=== PATIENT | female | born 1940 | race Caucasian/White ===

== ENCOUNTER 2016-10-03 07:08 | Inpatient (IN) | payer MEDICARE ==
[~2016-10-03] VITALS: Ht 175.3 cm; Wt 65.5 kg
[2016-10-03] VITALS (13 sets, daily range): BP systolic 95–111; BP diastolic 63–84; BMI 20.7
[~2016-10-03 07:08] MED LIST: COREG6.25 MG PO; FLOMAX0.4 MG PO; LANOXIN125 MCG PO; LASIX20 MG PO; MICRO-K10 MEQ PO; NEXIUM40 MG PO; NORCO 10/325 TA1 TA1 PO; PRAVACHOL40 MG PO; PREDNISONE5 MG PO
[2016-10-03 08:28] LABS: BASOPHILS 0.2 % (0.0-2.0); EOSINOPHILS 0.2 % (0-7); HEMATOCRIT 50.2 % (42.0-54.0); HEMOGLOBIN 16.3 g/dL (13.5-17.5); IMMATURE GRANULOCYTES 1.8 % (0-5); MCH 29.5 pg (26.0-34.0); MCHC 32.5 g/dL (31.0-37.0); MCV 90.8 fL (80.0-100.0); MEAN PLATELET VOLUME 10.8 fL (7.4-10.4); MONOCYTES 5.7 % (2-11); NEUTROPHILS 86.1 % (40-80); PLATELET COUNT 167 10x3/uL (130-400); RBC 5.53 10x6/uL (4.20-6.10); RDW 13.9 % (11.5-14.5); WBC 17.1 10x3/uL (4.8-10.8)
[2016-10-03 08:52] LABS: ALBUMIN 2.8 g/dL (3.4-5.0); ANION GAP 13.1 mmol/L (8-16); BILIRUBIN - TOTAL 1.1 mg/dL (0.2-1.3); CALCIUM 9.6 mg/dL (8.5-10.1); CARBON DIOXIDE 31.3 mmol/L (21.0-32.0); CREATININE - SERUM 1.3 mg/dL (0.6-1.3); POTASSIUM - SERUM 4.4 mmol/L (3.5-5.1); PROTEIN - SERUM 7.7 g/dL (6.4-8.2)
[2016-10-03] MEDS ORDERED: CIALIS5 MG PO (11:48)
[2016-10-03] MEDS ORDERED: TESSALON PERLE100 MG PO (11:50)
--- NOTE | 2016-10-03 11:50 | NUR ---
Is the patient Alert and Oriented? No 0 * How many steps to enter\exit or inside your home? 0 0 * PCP FANNIE BLAIR APN 0 * Pharmacy [facility] 0 * Preadmission Environment Home with Family 0 * ADLs Independent 0 * Equipment Oxygen 0 * Other Equipment PATENT HAS CONCENTRATOR AND PORTABLE PROVIDED BY [employer] 0 * List name and contact numbers for known caregivers / representatives who currently or will assist patient after discharge: SPOUSE: MOMO [phone] 0 * Community resources currently utilized None 0 * Additional services required to return to the preadmission environment? No 0 * Can the patient safely return to the preadmission environment? Yes 0 * Has this patient been hospitalized within the prior 30 days at any hospital? No PATIENT LIVES AT HOME WITH HIS . SHE WILL BE AVAILABLE TO DRIVE HIM HOME AT DISCHARGE. SHE STATES THAT HE IS INDEPENDENT IN ADL'S. PATIENT PCP IS FANNIE BLAIR APN. HE GETS HIS MEDS AT [facility]. PATIENT HAS HOME O2 CONCENTRATOR AND PORTABLE PROVIDED BY [employer]. NEVER HAD HOME HEALTH. PATIENT STATES ONLY 1 STEP TO ENTER [facility].
[2016-10-03] MEDS ORDERED: TEMAZEPAM30 MG PO (11:53)
[2016-10-03] MEDS ORDERED: SINGULAIR10 MG PO (11:53)
[2016-10-03] MEDS ORDERED: PLAQUENIL200 MG PO (11:54)
[2016-10-03] MEDS ORDERED: PROVENTIL HFA6.7 GM INH (11:56)
[2016-10-03] MEDS ORDERED: PHENERGAN6.25 MG/5 PO (11:57)
[2016-10-03] MEDS ORDERED: TESTOSTERON200 MG/ML IM (12:00)
[2016-10-03 12:22] LABS: APPEARANCE CLEAR (CLEAR); BILIRUBIN NEGATIVE (NEGATIVE); COLOR DK YELLOW (YELLOW); GLUCOSE NEGATIVE (NEGATIVE); KETONE SMALL mg/dL (NEGATIVE); LEUKOCYTE ESTERASE TRACE (NEGATIVE); NITRITE NEGATIVE (NEGATIVE); PROTEIN TRACE mg/dL (NEGATIVE); SPECIFIC GRAVITY 1.015 (1.005-1.020); UROBILINOGEN NORMAL (NORMAL)
[2016-10-03 12:25] LABS: EPITHELIAL CELLS 0-5 /hpf (0-5); GRANULAR CAST RARE /lpf (NONE SEEN); MUCUS <1+ /lpf (NONE SEEN); RED CELLS - URINE OCC /hpf (0-5); WHITE CELLS - URINE OCC /hpf (0-5)
--- NOTE | 2016-10-03 14:29 | NUR ---
1130 PT RECIEVED FROM THE ER VIA STRECHER.. BIPAP O2 ON ARRIVAL...PT IS AWAKE AND ALERT.. PT STATES HE WANTS EVERYTHING DONE TO PROLONG HIS LIFE.. INCLUDING INTUBATION.. THERE IS A LEFT PIV WITH LEVOQUIN INFUSING ON ARRIVAL.. 1200 AND DAUGHTER IN TO SEE PT AND ASSISTED WITH MED HISTORY.. PT IS CONVERSING WITH THE FAMILY THRU BIPAP MASK.. 1230 [address] KEENAN AND DR WINKLER IN TO SEE PT AND SPOKW WIH THE FAMILY AND PT.. PT VOIDS WITHOUT DIFFICULTY INTO URINAL.. ICE CHIPS GIVEN TO PT 1330 ECHO DONE AT BEDSIDE PER ORDER.. 1400 CONTINUES ON BIPAP RECIEVING ICE CHIPS... RESTING QUIETLY AT THIS TIME..
--- NOTE | 2016-10-03 16:23 | EC ---
PATIENT:CL VICKERS DATE OF SERVICE: 10/03/16 SEX: M MEDICAL RECORD: [id number] DATE OF : [birth year] LOCATION:[facility] AGE OF PATIENT: 76 ADMISSION DATE: 10/03/16 REFERRING PHYSICIAN: INTERPRETING PHYSICIAN: CASTRO ALEXANDRE MD ECHOCARDIOGRAM REPORT ECHO CHARGES 5 ECHO LIMITED CLINICAL DIAGNOSIS: CHF/ASSESS EF HX OF CHF/ ASSESS EF HX OF ICD/CAD ECHO COMPLETED DONE ON 09-27-16 ECHOCARDIOGRAPHIC MEASUREMENTS (adult normal given) AC root (d.<3.7cm) 3.4 LV Septum d (<1.2 cm> 1.7 Valve Excursion 1.7 LV Septum (systole) 1.6 Left Atria (s.<4.0cm> 3.7 LVPW d(<1.2cm) 1.2 RV (d.<2.3cm) 4.0 LVPW (sytole) 1.1 LV diastole(<5.6CM) 5.9 MV E-F(>70mm/sec) LV systole 5.4 LVOT Diameter MV exc.(>10mm) Est.ejection fraction (50-75%) Pericardial Effusion N DOPPLER: LVIT A E LA RVSP 33 LVOT AOP1/2T Asc. Ao RVOT RA PA AV Gradient Peak AV Mean AV Area MV Gradient Peak MV Mean MV Area COMMENTS: Loading Unit Operator Crimping: Sadi HILLIARD Automatic I Threading Machine Feeder:2 Dr. Roche TAPE# PACS DATE OF SERVICE: 10/03/2016 Echocardiogram FINDINGS: 1. Left ventricle chamber size is dilated. Left ventricular systolic function is markedly reduced, overall ejection fraction 15% to 20%. 2. Left atrium, right atrium, and right ventricular chamber sizes are mildly ECHOCARDIOGRAM REPORT [id number] CL VICKERS dilated. 3. Valvular structures have normal structure and motion. 4. Doppler interrogation reveals mild aortic insufficiency, mild mitral regurgitation, mild tricuspid regurgitation, no other valvular insufficiency or stenosis. 5. No evidence of pericardial effusion or left ventricular thrombus. TRANSINT:[id number] Voice Confirmation ID: [id number] DOCUMENT ID: [id number] CASTRO ALEXANDRE MD at 1623 CC: [id number] DICTATION DATE: 10/03/16 1509 METAL CANS SUPERVISOR: 10/03/16 1526 ADM IN [facility] [address] [id number]
--- NOTE | 2016-10-03 18:04 | NUR ---
1500 FAMILY IN TO SEE PT PT IS VERY RESTLESS AND IS TRYING TO GET OOB SO THAT HE CAN URINAE IN THE URINAL STANDING AT BEDSIDE.. PT IS VERY COMBATIVE AND ANXIOUS WITH HIS PULSE RATE CLIMBING UP TO 136 AND RESPIRATIONS ARE 54 ON BIPAP AT 70%... VERY HELPFUL IN CALMING PT ..UPDATE GIVEN TO HER.. 1540 AFTER SPOKE WITH PT AND 1 MGATIVAN GIVEN IV FOR AGITATION PT AGREED TO KEY CATH PLACEMENT.. 1620 18FR COUDE CATH PLACED BY NEISHA THOMPSON RN.. IMMIDIATE RETURN OF 200CC YELLOW URINE INTO COLLECTION BAG... 1700 PT IS RESTING QUIETLY AT THIS TIME.. 1730 PT SOMEWHAT CONFUSED AND STATING HE NEEDS TO GET OOB TO URINATE.. REORIENTED TO CATHETER.. 1800 FAMILY AT THE BEDSIDE.. UPDAte given
--- NOTE | 2016-10-03 23:30 | NUR ---
1929- REPORT RECVD. CARE ASSUMED. INITIAL ASSMNT COMPLETED. SEE FLOWSHEET FOR ALL FINDINGS. AWAKE, RESTLESS. ORIENTED. RESP SHALLOW AND TACHY ON BIPAP AT 70%. LUNGS WITH CRACKLES AND WHEEZES THRU OUT. DIM IN BASES. ST ON THE MONITOR WITH OCC PACS. PULSES PALP, WEAK. SCDS ON. ABD SOFT, BSA X4. F/C PATENT WITH CONCENTRATED UOP. DENIES DISCOMFORT. HOB UP. C/L IN REACH. CONT CURRENT POC. 2100- HS MEDS GIVEN. ORAL CARE PROVIDED. FAMILY AT BEDSIDE. UPDATE GIVEN. VSS. REMAINS ON BIPAP. CONT POC. 0- REASSESSMENT COMPLER SEE FLOWSHEET FOR ALL FINDINGS. AWAKE, RESTLESS. ORIENTED. RESP SHALLOW AND TACHY ON BIPAP AT 70%. LUNGS WITH CRACKLES AND WHEEZES THRU OUT. DIM IN BASES. ST ON THE MONITOR WITH OCC PACS. PULSES PALP, WEAK. SCDS ON. ABD SOFT, BSA X4. F/C PATENT WITH CONCENTRATED UOP. DENIES DISCOMFORT. HOB UP. C/L IN REACH. CONT CURRENT POC.
[2016-10-04] VITALS (25 sets, daily range): BP systolic 93–134; BP diastolic 40–96; Ht 175.3 cm; Wt 65.5 kg
--- NOTE | 2016-10-04 01:10 | NUR ---
RESTING ON BIPAP WITHNO DISTRESS AT THIS TIME. VSS. SPO2 97% ON BIPAP AT 70% FIO2. ORAL CARE PROVIDED. HOB UP. C/L IN REACH. CONT CURRENT POC.
--- NOTE | 2016-10-04 03:30 | NUR ---
REASSESSMENT COMPLETED. SEE FLOWSHEET FOR ALL FINDINGS. AWAKE, RESTLESS. ORIENTED. RESP SHALLOW AND TACHY ON BIPAP AT 70%. LUNGS WITH CRACKLES AND WHEEZES THRU OUT. DIM IN BASES. ST ON THE MONITOR WITH OCC PACS. PULSES PALP, WEAK. SCDS ON. ABD SOFT, BSA X4. F/C PATENT WITH CONCENTRATED UOP. DENIES DISCOMFORT. HOB UP. C/L IN REACH. CONT CURRENT POC.
--- NOTE | 2016-10-04 05:20 | NUR ---
RESTING ON BIPAP WITH NO DISTRESS. VSS. FIO2 DECREASED PER ABGS. SPO2 97%. ORAL CARE PROVIDED. HOB UP. C/L IN REACH. CONT CURRENT POC.
[2016-10-04 05:45] LABS: BASOPHILS 0.1 % (0.0-2.0); EOSINOPHILS 0 % (0-7); HEMATOCRIT 47.4 % (42.0-54.0); HEMOGLOBIN 15.1 g/dL (13.5-17.5); IMMATURE GRANULOCYTES 0.8 % (0-5); LYMPHOCYTES 2.7 % (15-50); MCH 28.9 pg (26.0-34.0); MCHC 31.9 g/dL (31.0-37.0); MCV 90.6 fL (80.0-100.0); MEAN PLATELET VOLUME 11.1 fL (7.4-10.4); MONOCYTES 3.5 % (2-11); NEUTROPHILS 92.9 % (40-80); PLATELET COUNT 167 10x3/uL (130-400); RBC 5.23 10x6/uL (4.20-6.10); RDW 14.1 % (11.5-14.5)
[2016-10-04 06:03] LABS: WBC 12.1 10x3/uL (4.8-10.8)
[2016-10-04 06:14] LABS: ALBUMIN 2.3 g/dL (3.4-5.0); ANION GAP 14.4 mmol/L (8-16); BILIRUBIN - TOTAL 0.62 mg/dL (0.2-1.3); CALCIUM 9.3 mg/dL (8.5-10.1); CARBON DIOXIDE 29.9 mmol/L (21.0-32.0); CHOL - HDL RATIO 4.5 ratio (2.3-4.9); CREATININE - SERUM 1.2 mg/dL (0.6-1.3); LDL-HDL RATIO 3.2 ratio (1.5-3.5); PHOSPHOROUS 3.5 mg/dL (2.5-4.9); POTASSIUM - SERUM 4.3 mmol/L (3.5-5.1); PROTEIN - SERUM 6.8 g/dL (6.4-8.2); THYROID STIMULATING HORMONE 0.32 uIU/mL (0.36-3.74)
[2016-10-04 06:15] LABS: TROPONIN-I 1.202 ng/mL (0.000-0.060)
--- NOTE | 2016-10-04 07:53 | NUR ---
DR ROSADO CALLED TROP I 1.2 NO NEW ORDERS OBTAINED.
--- NOTE | 2016-10-04 09:25 | NUR ---
ROB WAS UNSUCCESSFUL WITH FIRST ATTEMPT WITH PICC LINE PLACEMENT. WILL ALLOW FAMILY TO VISIT AND THEN TRY AGAIN.
--- NOTE | 2016-10-04 09:37 | NUR ---
PATIENTS BIPAP TURNED DOWN TO 40% BY CHELLY WITH RESPIRATORY.
--- NOTE | 2016-10-04 10:39 | NUR ---
ORAL CARE COMPLETED, THIS TIME WAS ABLE TO RECEIVE SPUTUM FOR CULTURE.
--- NOTE | 2016-10-04 12:15 | NUR ---
ATTEMPTED TO PULL PATIENT OFF BIPAP IN FEW SECOND SPIRTS SO THAT HE COULD TRY TO CONSUME HIS CLEAR LIQUID DIET. PATIENT DID NOT TOLERATE THIS WELL. HE DRANK MOST OF HIS APPLEJUICE AND ATE 2 SQUARES OF JELLO OVER A 12 MINUTE (PUTTING BIPAP MASK BACK ON INBETWEEN EACH TIME). PATIENT BECAME VERY SHORT OF BREATH, FACE TURNED PURPLE IN COLOR. ON THE BIPAP HIS SATS WERE 86-93% AND PATIENT STARTED PANICKING. WITH THE ASSISTANCE OF PHYSICAL THERAPY, PATIENT WAS ABLE TO CONTROL HIS BREATHS. HE IS NOW ON 45% OXYGEN. SATS ARE HANGING AROUND 94-96%
--- NOTE | 2016-10-04 14:53 | NUR ---
PATIENT VOMITED ABOUT 60CC OF YELLOW FLUID. ZOFRAN HAS BEEN GIVEN, JUST HAS NOT TAKEN HOLD YET. PATIENT STATED HE STILL FEELS A LITTLE NAUSEATED. WHEN ASKED IF HE HAD NAUSEA PRIOR TO HIS HOSPITALIZATION HE SAID IT HAS BEEN GOING ON FOR THE LAST "7 WEEKS". QUESTIONED TO WHETHER OR NOT HE HAS MENTIONED IT TO HIS DOCTOR AND HE STATED NO. WILL MAKE SURE THE DOCTOR IS A MANZO THE NAUSEA HAS BEEN COMING AND GOING FOR THE LAST 7 WEEKS. PATIENT WAS CLEANED UP BY THIS NURSE AND HIS BIPAP MASK WAS CLEANED UP BY WENDY SPAULDING. PATIENTS SATS DROPPED TO 71% DURING THE SHORT TIME HE WAS ON ROOM AIR. RECOVERED BACK TO 94% IN LESS THAN 3 MINUTES. ASSESSMENT WAS COMPLETED AT THIS TIME.
--- NOTE | 2016-10-04 15:08 | NUR ---
PATIENT VOMITED AGAIN. THIS TIME THERE WAS 120 ML OF YELLOW EMESIS. PATIENT STATED THAT THIS TIME HE FEELS EVEN BETTER THAN THE LAST TIME. DAUGHTER IS HERE FOR VISITATIONS. SHE HAS CONFIRMED THE NAUSEA FOR A BIT, UNSURE IF IT HAS BEEN 7 WEEKS, BUT SAID IT HAS BEEN "A BIT".
--- NOTE | 2016-10-04 15:20 | NUR ---
SPOKE WITH DR RAY ABOUT PATIENT, WILL START HIM ON A ZOFRAN GTT.
--- NOTE | 2016-10-04 23:30 | NUR ---
1929- REPORT RECVD. CARE ASSUMED. INITIAL ASSMNT COMPLETED. SEE FLOWSHEET FOR ALL FINDINGS. AWAKE, RESTLESS. ORIENTED. RESP SHALLOW AND TACHY ON BIPAP. LUNGS WITH CRACKLES AND WHEEZES THRU OUT. DIM IN BASES. ST ON THE MONITOR WITH OCC PACS. PULSES PALP, WEAK. SCDS ON. ABD SOFT, BSA X4. F/C PATENT WITH CONCENTRATED UOP. DENIES DISCOMFORT. HOB UP. C/L IN REACH. CONT CURRENT POC. 2100- HS MEDS GIVEN. ORAL CARE PROVIDED. FAMILY AT BEDSIDE. UPDATE GIVEN. VSS. REMAINS ON BIPAP. CONT POC. 2329- REASSESSMENT COMPLER SEE FLOWSHEET FOR ALL FINDINGS. AWAKE, RESTLESS. ORIENTED. RESP SHALLOW AND TACHY ON BIPAP. LUNGS WITH CRACKLES AND WHEEZES THRU OUT. DIM IN BASES. ST ON THE MONITOR WITH OCC PACS. PULSES PALP, WEAK. SCDS ON. ABD SOFT, BSA X4. F/C PATENT WITH CONCENTRATED UOP. DENIES DISCOMFORT. HOB UP. C/L IN REACH. CONT CURRENT POC.
[2016-10-05] VITALS (23 sets, daily range): BP systolic 94–118; BP diastolic 48–88
--- NOTE | 2016-10-05 01:15 | NUR ---
RESTING ON BIPAP. VSS. ORAL CARE AND PO FLUIDS PROVIDED. REPOSITIONS SELF FOR COMFORT. ST ON THE MONITOR. DENIES DISCOMFORT. HOB UP. C/L IN REACH. CONT CURRENT POC.
--- NOTE | 2016-10-05 03:22 | NUR ---
REASSESSMENT COMPLETED. SEE FLOWSHEET FOR ALL FINDINGS. RESTING ON BIPAP WITH NO DISTRESS. SPO2 97%. LUNGS WITH SCANT CRACKLES TO UPPER LOBES. DIM IN BASES. SR-ST ON THE MONITOR. PULSES PALP. TRACE EDEMA NOTED. SCDS ON. AFEBRILE. ABD SOFT, BSA X4. F/C PATENT WITH CONCENTRATED UOP. HOB UP. C/L IN REACH. BED ALARM ON FOR SAFETY. CONT CURRENT POC.
--- NOTE | 2016-10-05 05:16 | NUR ---
RESTING WITH NO DISTRESS. PRN ATIVAN GIVEN FOR ANXIETY PER REQUEST. VSS. SR ON THE MONITOR. SPO2 96% ON FIO2 45%. HOB UP. C/L IN REACH. CONT CURRENT POC.
[2016-10-05 05:48] LABS: APPEARANCE HAZY (CLEAR); BILIRUBIN NEGATIVE (NEGATIVE); COLOR YELLOW (YELLOW); GLUCOSE NEGATIVE (NEGATIVE); KETONE MODERATE mg/dL (NEGATIVE); LEUKOCYTE ESTERASE NEGATIVE (NEGATIVE); NITRITE NEGATIVE (NEGATIVE); PROTEIN TRACE mg/dL (NEGATIVE); RED CELLS - URINE 25-50 /hpf (0-5); SPECIFIC GRAVITY 1.015 (1.005-1.020); UROBILINOGEN NORMAL (NORMAL); WHITE CELLS - URINE 0-5 /hpf (0-5)
[2016-10-05 06:22] LABS: BASOPHILS 0 % (0.0-2.0); EOSINOPHILS 0 % (0-7); HEMATOCRIT 44.9 % (42.0-54.0); HEMOGLOBIN 14.3 g/dL (13.5-17.5); IMMATURE GRANULOCYTES 0.5 % (0-5); LYMPHOCYTES 1.9 % (15-50); MCH 29.1 pg (26.0-34.0); MCHC 31.8 g/dL (31.0-37.0); MCV 91.3 fL (80.0-100.0); NEUTROPHILS 92.6 % (40-80); PLATELET COUNT 168 10x3/uL (130-400); RBC 4.92 10x6/uL (4.20-6.10); RDW 14.1 % (11.5-14.5); WBC 13.7 10x3/uL (4.8-10.8)
[2016-10-05 07:05] LABS: ALBUMIN 2.2 g/dL (3.4-5.0); ALKALINE PHOSPHATASE 72 U/L (46-116); BILIRUBIN - TOTAL 0.47 mg/dL (0.2-1.3); CALC OSMOLALITY 291 mosm/kg (275-300); CALCIUM 9.1 mg/dL (8.5-10.1); CARBON DIOXIDE 30.5 mmol/L (21.0-32.0); CHLORIDE - SERUM 105 mmol/L (98-107); CKMB 3.8 U/L (0.0-3.6); CREATININE - SERUM 1.1 mg/dL (0.6-1.3); GLUCOSE 140 mg/dL (74-106); MAGNESIUM - SERUM 2.1 mg/dL (1.8-2.4); POTASSIUM - SERUM 4.2 mmol/L (3.5-5.1); PRO BNP 7033 pg/mL (0-450); PROTEIN - SERUM 6.4 g/dL (6.4-8.2); SODIUM 141 mmol/L (136-145); THYROID STIMULATING HORMONE 0.25 uIU/mL (0.36-3.74); UREA NITROGEN 38 mg/dL (7-18); eGFR NON AFRICAN AMERICAN 69 mL/min (90-120)
[2016-10-05 07:06] LABS: ALT (SGPT) 21 U/L (10-68); PHOSPHOROUS 2.4 mg/dL (2.5-4.9); TROPONIN-I 0.669 ng/mL (0.000-0.060)
--- NOTE | 2016-10-05 09:05 | NUR ---
PLACED ON O2 AT 8L OXIMIZER.
--- NOTE | 2016-10-05 09:23 | NUR ---
PLACED BACK ON BIPAP.
--- NOTE | 2016-10-05 12:00 | NUR ---
ON OXIMIZER FOR LUNCH.
--- NOTE | 2016-10-05 13:15 | NUR ---
BACK ON BIPAP.
--- NOTE | 2016-10-05 23:30 | NUR ---
1929- REPORT RECVD. CARE ASSUMED. INITIAL ASSMNT COMPLETED. SEE FLOWSHEET FOR ALL FINDINGS. AWAKE, RESTLESS. ORIENTED. RESP SHALLOW AND TACHY ON BIPAP. LUNGS WITH CRACKLES AND WHEEZES THRU OUT. DIM IN BASES. ST ON THE MONITOR WITH OCC PACS. PULSES PALP, WEAK. SCDS ON. ABD SOFT, BSA X4. F/C PATENT WITH CONCENTRATED UOP. DENIES DISCOMFORT. HOB UP. C/L IN REACH. CONT CURRENT POC. 2100- HS MEDS GIVEN. ORAL CARE PROVIDED. FAMILY AT BEDSIDE. UPDATE GIVEN. VSS. REMAINS ON BIPAP. CONT POC. 2329- REASSESSMENT COMPLER SEE FLOWSHEET FOR ALL FINDINGS. AWAKE, RESTLESS. ORIENTED. RESP SHALLOW AND TACHY ON BIPAP. LUNGS WITH CRACKLES AND WHEEZES THRU OUT. DIM IN BASES. SR ON THE MONITOR WITH OCC PACS. PULSES PALP, WEAK. SCDS ON. ABD SOFT, BSA X4. F/C PATENT WITH CONCENTRATED UOP. DENIES DISCOMFORT. HOB UP. C/L IN REACH. CONT CURRENT POC.
[2016-10-06] VITALS (24 sets, daily range): BP systolic 91–152; BP diastolic 42–89
--- NOTE | 2016-10-06 01:30 | NUR ---
RESTING ON BIPAP WITH NO DISTRESS. VSS. SPO2 97% SR ON THE MONITOR. HOB UP. C/L IN REACH. BED ALARM ON. CONT CURRENT POC.
--- NOTE | 2016-10-06 03:00 | NUR ---
REQUESTED PRN ATIVAN FOR ANXIETY. REASSESSMENT COMPLETED. SEE FLOWSHEEET FOR ALL FINDINGS. REMAINS ON BIPAP. SR ON THE MONITOR. DENIES DISCOMFORT. HOB UP. C/L IN REACH. CONT CURRENT POC.
--- NOTE | 2016-10-06 05:00 | NUR ---
BATH GIVEN FOR INCONTINENCE IF STOOL. VERY CONFUSED. PULLING AT F/C AND BROKE BIPAP MASK OFF. RESTRAINTS PER PROTOCOL PER DR WINKLER.
[2016-10-06 05:31] LABS: BASOPHILS 0 % (0.0-2.0); EOSINOPHILS 0 % (0-7); HEMATOCRIT 47.2 % (42.0-54.0); HEMOGLOBIN 14.5 g/dL (13.5-17.5); IMMATURE GRANULOCYTES 0.3 % (0-5); LYMPHOCYTES 3.8 % (15-50); MCH 28.5 pg (26.0-34.0); MCHC 30.7 g/dL (31.0-37.0); MCV 92.9 fL (80.0-100.0); MEAN PLATELET VOLUME 10.8 fL (7.4-10.4); MONOCYTES 2.3 % (2-11); NEUTROPHILS 93.6 % (40-80); PLATELET COUNT 165 10x3/uL (130-400); RBC 5.08 10x6/uL (4.20-6.10); RDW 13.9 % (11.5-14.5); WBC 11.5 10x3/uL (4.8-10.8)
[2016-10-06 05:56] LABS: ALBUMIN 2.4 g/dL (3.4-5.0); ANION GAP 12.3 mmol/L (8-16); CALCIUM 9.1 mg/dL (8.5-10.1); CARBON DIOXIDE 32.8 mmol/L (21.0-32.0); CREATININE - SERUM 1.1 mg/dL (0.6-1.3); MAGNESIUM - SERUM 2.2 mg/dL (1.8-2.4); PHOSPHOROUS 2.8 mg/dL (2.5-4.9); POTASSIUM - SERUM 4.1 mmol/L (3.5-5.1)
--- NOTE | 2016-10-06 08:51 | NUR ---
PT VERY AGGITATED. PULLING AT RESTRAINTS, COVERS, IV LINES, KEY. WILL CONTINUE SOFT BILATERAL WRIST RESTRAINTS AT THIS TIME. PT GIVEN ATIVAN ORDERED. WILL CONTINUE TO MONITOR.
--- NOTE | 2016-10-06 10:36 | NUR ---
PT SWITCHED OVER TO HIGH FLOW VAPO THERM AT 40L 65%. O2 SAT 92%.
--- NOTE | 2016-10-06 12:30 | NUR ---
DR. WINKLER AT BEDSIDE. PT VERY RESTLESS AND DESATURATING WITH MOVEMENT. TACHYCARDIA. FIO2 INCREASED TO 100%. PT'S O2 SAT INC TO 94%. WILL CONTINUE TO MONITOR.
--- NOTE | 2016-10-06 13:45 | NUR ---
PT HAD COMPLETE BATH AND LINEN CHANGE. VERY RESTLESS. REPOSITIONED TO RIGHT SIDE. NURSE AT BEDSIDE. GIVEN WARM BLANKET. WILL CONTINUE TO MONITOR.
--- NOTE | 2016-10-06 15:20 | NUR ---
FIO2 DEC TO 85%. TOLERATING WELL. O2 SAT 97%.
--- NOTE | 2016-10-06 16:51 | NUR ---
UPDATED DR. WINKLER ON ABG RESULTS. WILL UPDATE FAMILY AND CLARIFY CODE STATUS.
--- NOTE | 2016-10-06 16:58 | NUR ---
SPOKE WITH PT'S MOMO AND PT'S DAUGHTER REINA. THEY ARE ON THEIR WAY UP TO THE HOSPITAL TO SPEAK WITH DR. WINKLER REGARDING INTUBATION.
--- NOTE | 2016-10-06 17:02 | NUR ---
PT PLACED BACK ON BIPAP FIO2 100%. O2 SAT 86%. PT STILL FIDGETING AND PULLING AT COVERS/CLOTHES/LINES.
--- NOTE | 2016-10-06 17:41 | NUR ---
DR. WINKLER AT BEDSIDE AND SPEAKING WITH PT'S DAUGHTER AND .
--- NOTE | 2016-10-06 17:42 | NUR ---
PT ON BIPAP AT 80%. RESTING COMFORTABLY AT THIS TIME. O2 SAT 99%. RESP 22.
--- NOTE | 2016-10-06 19:30 | NUR ---
1929- REPORT RECVD. CARE ASSUMED. INITIAL ASSMNT COMPLETED. SEE FLOWSHEET FOR ALL FINDINGS. AWAKE, RESTLESS. CONFUSED. RESP SHALLOW AND TACHY ON BIPAP. LUNGS WITH CRACKLES AND WHEEZES THRU OUT. DIM IN BASES. ST ON THE MONITOR WITH OCC PACS. PULSES PALP, WEAK. SCDS ON. ABD SOFT, BSA X4. F/C PATENT WITH CONCENTRATED UOP. RESTRAINTS FOR SAFETY. HOB UP. C/L IN REACH. CONT CURRENT POC. 2100- HS MEDS GIVEN. ORAL CARE PROVIDED. FAMILY AT BEDSIDE. UPDATE GIVEN. VSS. REMAINS ON BIPAP. CONFUSED AND AGITATED. RESTLESS. RESTRAINTS IN USE. HOB UP. C/L IN REACH. CONT POC. 2330- REASSESSMENT COMPLER SEE FLOWSHEET FOR ALL FINDINGS. RESP SHALLOW AND TACHY ON BIPAP. LUNGS WITH CRACKLES AND WHEEZES THRU OUT. DIM IN BASES.. VERY CONFUSED AND AGITATED AT TIMES. PRN HALDOL IN USE. PRN MORPHINE GIVEN FOR S/S OF PAIN ORDERED. SR ON THE MONITOR WITH OCC PACS. PULSES PALP, WEAK. SCDS ON. ABD SOFT, BSA X4. F/C PATENT WITH CONCENTRATED UOP. HOB UP. C/L IN REACH. RESTRAINTS FOR SAFETY. CONT CURRENT POC.
[2016-10-07] VITALS (15 sets, daily range): BP systolic 102–120; BP diastolic 64–100
--- NOTE | 2016-10-07 01:30 | NUR ---
REMAINS CONFUSED AND RESTLESS ON BIPAP AT 80%. SPO2 94% ST ON THE MONITOR. HALDOL GIVEN Q2H FOR AGITATION. PRN MORPHINE PROVIDED FOR S/S OF DISCOMFORT. HOB UP. BED ALARM ON. RESTRAINTS PER PROTOCOL. CONT CURRENT POC.
--- NOTE | 2016-10-07 03:30 | NUR ---
REASSESSMENT COMPLETED. SEE FLOWSHEET FOR ALL FINDINGS. PER ABGS, FIO2 INCREASED TO 100%. REMAINS CONFUSED AND AGITATED AT TIMES. LUNGS DIM THRU OUT. SPO2 96% ST ON THE MONITOR. AFEBRILE. F/C PATENT WITH DARK UOP. HOB UP. RESTRAINTS PER PROTOCOL. CONT CURRENT POC.
--- NOTE | 2016-10-07 05:30 | NUR ---
REMAINS ON BIPAP AT 100%. SPO2 95%. RESTLES AND AGITATED FREQUENTLY. RESTRAINTS IN USE. HOB UP. MONITORING CLOSELY.
[2016-10-07 05:39] LABS: BASOPHILS 0 % (0.0-2.0); EOSINOPHILS 0 % (0-7); HEMATOCRIT 48.1 % (42.0-54.0); HEMOGLOBIN 14.5 g/dL (13.5-17.5); IMMATURE GRANULOCYTES 0.3 % (0-5); LYMPHOCYTES 4.4 % (15-50); MCH 28.4 pg (26.0-34.0); MCHC 30.1 g/dL (31.0-37.0); MCV 94.1 fL (80.0-100.0); MEAN PLATELET VOLUME 11.1 fL (7.4-10.4); MONOCYTES 4.9 % (2-11); NEUTROPHILS 90.4 % (40-80); PLATELET COUNT 151 10x3/uL (130-400); RBC 5.11 10x6/uL (4.20-6.10); RDW 13.7 % (11.5-14.5); WBC 10.7 10x3/uL (4.8-10.8)
[2016-10-07 06:20] LABS: ALBUMIN 2.4 g/dL (3.4-5.0); BILIRUBIN - TOTAL 0.39 mg/dL (0.2-1.3); CALCIUM 8.9 mg/dL (8.5-10.1); CARBON DIOXIDE 36.6 mmol/L (21.0-32.0); CREATININE - SERUM 1.2 mg/dL (0.6-1.3); MAGNESIUM - SERUM 2.4 mg/dL (1.8-2.4); PHOSPHOROUS 3.3 mg/dL (2.5-4.9); POTASSIUM - SERUM 4.6 mmol/L (3.5-5.1); PROTEIN - SERUM 6.4 g/dL (6.4-8.2)
[2016-10-07 06:21] LABS: TROPONIN-I 0.42 ng/mL (0.000-0.060)
--- NOTE | 2016-10-07 09:03 | NUR ---
REPORT RECIEVED FROM [facility]GOMAN NURSE. PT CONFUSED/RESTLESS IN BED. SLIGHTLY AGGITATED. ON BIPAP AT 100%. O2 SATS 93% AT THIS TIME. RESP SHALLOW AND TACHY ON BIPAP. LUNGS WITH CRACKLES AND WHEEZES THROUGHOUT UPPER LOBES. DIMINISHED IN BASES. ST ON THE MONITOR WITH OCC PACS. PULSES PALP, WEAK. SCDS OFF AT THIS TIME. ABD SOFT NON DISTENDED. ACTIVE X4. F/C PATENT WITH OUMAR COLORED URINE. HOB UP AT 30 DEGREES. SOFT WRIST RESTRAINTS ON BILAT UPPER EXT. BED IN LOW POSITION. ALARM ON. WILL CONTINUE TO ASSESS FOR CHANGE.
--- NOTE | 2016-10-07 09:50 | NUR ---
Nutrition follow-up: Diet: Full liquids Pt with very poor po intake at this time due to breathing issues Labs reviewed Wt: 144# Recommend nutrition support start: PEG tube vs NGT placement and tube feeding started. Noted pt is confused and is pulling at lines. If TF not feasible may consider ProcalAmine PPN @ 75 ml/hr with 20% 250 ml intralipids every other day. RDN following.
--- NOTE | 2016-10-07 11:20 | NUR ---
DR. HILL SPOKE WITH FAMILY REGARDING PLAN OF CARE. DISCUSSED ALL OPTIONS. FAMILY REQUESTING HOSPICE CARE AT THIS TIME.
--- NOTE | 2016-10-07 13:17 | NUR ---
Patient Name: CL VICKERS Encounter No: [id number] : 1940 Primary Insurance: MEDICARE A & B Anticipated DC Date: UNSURE Planned Disposition: Hospice Medical Facility External Planned Provider: [facility] DCP follow-up note: CM RECEIVED CALL FROM ICU TO INFORM OF ORDER FOR HOSPICE EVAL. PT SEDATED AT THIS TIME AND UNABLE TO ANSWER QUESTIONS, HOWEVER, FAMILY IS PRESENT. CM SPOKE WITH PATIENT'S SO OF 22 YRS AND HIS TWO CHILDREN REGARDING HOSPICE ORDER. FAMILY STATED THAT THEY HAVE MET WITH DR HILL AND WOULD LIKE [facility] TO COME AND SPEAK TO THEM REGARDING INPATIENT HOSPICE SERVICES. CM PLACED CALL TO [facility], LIAISON WITH [facility] TO INFORM OF EVAL ORDER. EARL SUE AND GRICELDA OSMAN WITH [facility] MET CM IN ICU FAMILY ROOM AND WERE INTRODUCED TO FAMILY. CM WILL FOLLOW WITH FAMILY'S WISHES ONCE THEY HAVE HAD OPPORTUNITY TO SPEAK TO HOSPICE LIAISONS. CM SPOKE WITH DR DUNN, WHO PT IS ADMITTED TO, AND HE ALSO AGREES WITH HOSPICE SERVICES IF THAT IS WHAT FAMILY WISHES. Shelly Robledo RN
--- NOTE | 2016-10-07 13:17 | NUR ---
NOTIFIED HOSPICE OF CONSULT. WILL FAX REQUESTED INFORMATION.
--- NOTE | 2016-10-07 13:48 | NUR ---
HANDOFF REPORT GIVEN TO JEFF QUINTANILLA RN.
--- NOTE | 2016-10-07 13:48 | NUR ---
HOSPICE AT BEDSIDE FOR EVAL.
--- NOTE | 2016-10-07 14:09 | CN ---
PATIENT NAME:CL VICKERS MEDICAL RECORD: [id number] : 38 LOCATION:[id number].[id number] ADMIT DATE: 10/03/16 ACCOUNT: [id number] CONSULTING PHYSICIAN: ALISON VARGHESE MD REFERRING PHYSICIAN: CHYNA RAY MD DATE OF CONSULTATION: 10/04/2016 Cardiology Consultation HISTORY OF PRESENT ILLNESS: A 76-year-old gentleman with a history of coronary artery disease, status post coronary bypass grafting. He has a history of chronic systolic cardiomyopathy with EF 30% to 35% at baseline. He was actually scheduled for a bronchoscopy, subacute course with worsening dyspnea ____ the ER and found to be hypoxic. His baseline functional capacity is fairly poor with hypercapnic respiratory failure. He has a history of pulmonary fibrosis, possibly rheumatic in origin. He has been started on broad-spectrum antibiotics for ____. We are seeing him concerning his cardiovascular status. PAST MEDICAL HISTORY: Include: 1. History of coronary artery disease, status post coronary bypass grafting. 2. Cardiomyopathy. 3. Rheumatoid arthritis. 4. Hypogonadism. 5. Gastroesophageal reflux disease. ALLERGIES: None known. MEDICATIONS: Typically include Tessalon Perles 200 t.i.d., temazepam 30 mg p.o. q.h.s., Singulair 10 q.h.s., Plaquenil 400 b.i.d., Phenergan 25 mg p.r.n., testosterone injections weekly, carvedilol 6.25 mg p.o. b.i.d., Frederic 10/325 one q.4 hours p.r.n., Nexium 40 daily and prednisone 5 mg p.o. daily. SOCIAL HISTORY: Lives at home. No exercise program. Quit smoking several years back. He is a nondrinker. He does have some difficulties with ADLs secondary to underlying dyspnea. REVIEW OF SYSTEMS: The patient reports easy bruising but reports no swollen glands. The patient reports no fever, no night sweats, no significant weight gain, no significant weight loss. No significant exercise tolerance. The patient reports no dry eyes, no irritation, no vision change. Patient reports no difficulty hearing and no ear pain. Patient reports no frequent nose bleeds or nose and sinus problems. Patient reports on arm pain on exertion. No shortness of breath while lying down. No history of heart murmur. Patient reports no cough, no wheezing or coughing up blood. Patient reports no abdominal pain, no vomiting. Normal appetite. No diarrhea and not vomiting blood. No nausea and no constipation. Patient reports no incontinence. No difficulty urinating. No hematuria. No increased frequency. Patient reports no muscle aches. No weakness, no arthralgias, no back pain. No swelling of the extremities. Patient reports no abnormal mole, no jaundice, no rashes. Reports no loss of consciousness. No weakness and no numbness. No seizures, dizziness, or headaches. The patient reports no depression, no sleep disturbance, feeling safe in a relationship and no alcohol abuse. Patient reports on fatigue. Reports no runny nose or sinus pressure. No itching, no hives, and no frequent sneezing. CONSULT REPORT [id number] CL VICKERS PHYSICAL EXAMINATION: GENERAL: Chronically ill-appearing gentleman, currently on BiPAP. VITAL SIGNS: Pulse 117, sinus with PACs. Blood pressure 115/78. HEENT: Normocephalic and atraumatic. NECK: No bruits are noted. HEART: Tones are distant, occasional extrasystole, questionable S3 gallop. LUNGS: Prolonged expiratory phase with few expiratory wheezes. ABDOMEN: Soft and nontender. EXTREMITIES: Pulses are decreased 1+. There is no edema. IMAGING: Echocardiographic studies reviewed. Decreased in EF from previous echocardiographic study with EF currently around 20%. IMPRESSION: At this point in time, difficult to say if this a progression of underlying baseline cardiomyopathy or an acute exacerbation secondary to underlying illness. I agree with current supportive measures. Given tachycardia, we would not place on Dobutrex drip at this point. We will challenge with KYRIE in addition to his beta-blockade and digoxin if blood pressure allows. Further recommendations based on clinical course. TRANSINT:[id number] Voice Confirmation ID: [id number] DOCUMENT ID: [id number] ALISON VARGHESE MD at 1409 CC: [id number] DICTATION DATE: 10/04/16 1026 RUBBER COMPOUNDER FORMULATOR: 10/04/16 1326 ADM IN [id number] [place] [address]
--- NOTE | 2016-10-07 14:18 | NUR ---
[facility] HAD PERFORMED EVALUATION AND INFORMED CM THAT HE IS GENERAL INPATIENT HOSPICE APPROPRIATE. CM SPOKE WITH PT'S FAMILY AND THEY INFORMED THAT THEY WOULD LIKE FOR PATIENT TO REMAIN AT [facility] WITH [facility]. [facility] ARE AT PT'S BEDSIDE AND WILL PROCEED WITH ADMISSION TO [facility] PER FAMILY REQUEST AND MD ORDER. CM WILL FOLLOW AND ASSIST NEEDED. DC IMM PRESENTED TO PT'S FAMILY. SIGNED IMM PLACED IN CHART. MINA RUIZ RN
--- NOTE | 2016-10-07 15:00 | NUR ---
PT RESTING COMFORTABLY. BILATERAL SOFT WRIST RESTRAINTS D/C'D. PT NOT PULLING AT LINES AT THIS TIME.
--- NOTE | 2016-10-07 15:43 | NUR ---
PT'S FAMILY AT BEDSIDE. UDPATED ON PLAN OF CARE. PT TO BE DISCHARGED TO HOSPICE CARE. NEW HOSPICE ORDERS RECEIVED.
== END 2016-10-07 15:55 | disposition hospice, inpatient (51) | DRG 189 ==
LOC: D.ER 07:08 → EDSEX 10:13 → D.ICU 10:13
PROVIDERS: Emergency Medicine Emergency Medical Services; Internal Medicine Pulmonary Disease; ADMIT Family Medicine Adult Medicine
DX: J96.21 Acute and chronic respiratory failure with hypoxia (principal); J15.6 Pneumonia due to other Gram-negative bacteria; J15.212 Pneumonia due to Methicillin resistant Staphylococcus aureus; I50.43 Acute on chronic combined systolic (congestive) and diastolic (congestive) heart failure; J44.0 Chronic obstructive pulmonary disease with (acute) lower respiratory infection; J44.1 Chronic obstructive pulmonary disease with (acute) exacerbation; F05 Delirium due to known physiological condition; I42.9 Cardiomyopathy, unspecified; J84.10 Pulmonary fibrosis, unspecified; J96.22 Acute and chronic respiratory failure with hypercapnia; I11.0 Hypertensive heart disease with heart failure; E78.5 Hyperlipidemia, unspecified; K21.9 Gastro-esophageal reflux disease without esophagitis; I08.1 Rheumatic disorders of both mitral and tricuspid valves; I25.10 Atherosclerotic heart disease of native coronary artery without angina pectoris; Z78.1 Physical restraint status; J30.9 Allergic rhinitis, unspecified; R04.0 Epistaxis; R00.0 Tachycardia, unspecified; F41.9 Anxiety disorder, unspecified; Z95.5 Presence of coronary angioplasty implant and graft; Z87.891 Personal history of nicotine dependence

== ENCOUNTER 2016-10-07 15:53 | Inpatient (IN) | payer OTHER ==
[~2016-10-07] VITALS: Ht 175.3 cm; Wt 62.7 kg
[~2016-10-07 15:53] MED LIST changes: +CIALIS5 MG PO; +PHENERGAN6.25 MG/5 PO; +PLAQUENIL200 MG PO; +PROVENTIL HFA6.7 GM INH; +SINGULAIR10 MG PO; +TEMAZEPAM30 MG PO; +TESSALON PERLE100 MG PO; +TESTOSTERON200 MG/ML IM
--- NOTE | 2016-10-07 16:22 | NUR ---
SET UP MORPHINE HUMAN RESOURCES ASSISTANT PER MD ORDERS. PT VERY RESTLESS. GAVE BOLUS DOSE OF 2MG MORPHINE THROUGH HUMAN RESOURCES ASSISTANT PUMP.
[2016-10-07 16:27] VITALS: BP 95/69; Ht 175.3 cm; Wt 62.7 kg
[2016-10-07 16:36] VITALS: BP 95/69
--- NOTE | 2016-10-07 17:30 | NUR ---
PT RESTING COMFORTABLY. BIPAP REMOVED AND PT PLACED ON 6LNC. PT'S FAMILY AT BEDSIDE.
--- NOTE | 2016-10-07 19:02 | NUR ---
FAMILY AT BEDSIDE. PT RESTING COMFORTABLY AT THIS TIME. ORAL CARE GIVEN. TOLERATED WELL.
--- NOTE | 2016-10-07 19:25 | NUR ---
REC'D TO CARE, HOSPICE CARE PT. MORPHINE CONT INFUSION. FAMILY AT BS. POX 60%. RR 10. FAMILY AT BS. NO SIGN OF DISTRESS.
--- NOTE | 2016-10-07 19:41 | NUR ---
CM - HR DOWN TO 60 - PPM NOTED. RESP AGONAL FOR A MINUTE, THEN STOPPED. FAMILY AT BS. HOSPICE PAGED.
--- NOTE | 2016-10-07 20:06 | NUR ---
DR. BRO AND COMPUTER HARDWARE DEVELOPER HOSPICE NURSE NOTIFIED.
--- NOTE | 2016-10-07 20:08 | NUR ---
DR. DONATO, ER, HERE TO PRONOUNCE.
--- NOTE | 2016-10-07 21:21 | NUR ---
HOSPICE NURSE [facility] AT [facility] NOTIFIED.
--- NOTE | 2016-10-07 21:48 | NUR ---
KIAN NOTIFIED. POST MORTEM CARE DONE. AWAITING HOME. FAMILY HAS LEFT.
--- NOTE | 2016-10-08 13:47 | NUR ---
Per CMS protocol, restraint report logged into data base.
== END 2016-10-07 20:08 | DRG 951 ==
LOC: D.ICU 15:53
PROVIDERS: ADMIT Legal Medicine
DX: Z51.5 Encounter for palliative care (principal)